=== PATIENT | female | born 1960 | race Caucasian/White ===

== ENCOUNTER 2016-04-15 12:17 | Observation (INO) | payer SELFPAY ==
[2016-04-15] MEDS ORDERED: Morphine INJ* 4 MG/ML 1 ML CARPUJECT IV ONE (13:53)
[2016-04-15] MEDS ORDERED: Ondansetron INJ* 2 MG/ML VIAL IV ONE (13:53)
[2016-04-15 14:20] LABS: Hematocrit 44 % (35-47); Hemoglobin 14.8 g/dl (12.0-16.0); Mean Corpuscular HGB Conc 33 g/dl (31-36); Mean Corpuscular Hemoglobin 31 pg (27-31); Mean Corpuscular Volume 92 fL (80-97); Mean Platelet Volume 8 um3 (7.4-10.4); Red Cell Distribution Width 13 % (10.5-15); White Blood Count 8.8 10^3/ul (3.5-10.8)
[2016-04-15 14:23] LABS: Urine Bilirubin Negative (Negative); Urine Glucose Negative (Negative); Urine Nitrite Negative (Negative)
[2016-04-15 14:30] LABS: ALT 22 U/L (7-52); AST 20 U/L (13-39); Alkaline Phosphatase 101 U/L (34-104); Anion Gap 6 mmol/L (2-11); BUN/Creatinine Ratio 15.4 (8-20); Blood Urea Nitrogen 14 mg/dL (6-24); CO2 Carbon Dioxide 27 mmol/L (22-32); Calcium 9.8 mg/dL (8.6-10.3); Chloride 100 mmol/L (101-111); EGFR African American 83.2 (>60); EGFR Non-African American 64.7 (>60); Globulin 3.3 g/dL (2-4); Glucose 111 mg/dL (70-100); Potassium 3.6 mmol/L (3.5-5.0); Sodium 133 mmol/L (133-145); Total Protein 7.3 g/dL (6.4-8.9)
[2016-04-15 14:37] LABS: Benzodiazepine Urine Screen None Detected (None Detect)
[2016-04-15 14:39] LABS: Alcohol < 10 mg/dL (<10)
[2016-04-15] MEDS ORDERED: Iohexol 300* (CONTRAST) 10 ML SDV IV ONE (14:56)
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
--- NOTE | 2016-04-15 16:32 | RAD ---
INDICATION: Right knee injury COMPARISON: None TECHNIQUE: AP, lateral and tunnel views were obtained. FINDINGS: There is osteopenia with moderate tricompartmental osteoarthritic change. There is no acute bony change. There is soft tissue edema anterior and inferior to the patella. IMPRESSION: MODERATE OSTEOARTHRITIS. SOFT TISSUE INJURY ANTERIOR AND INFERIOR TO PATELLA
--- NOTE | 2016-04-15 16:37 | RAD ---
INDICATION: LEFT hand injury COMPARISON: None TECHNIQUE: AP and lateral views were obtained. FINDINGS: The bony structures, joint spaces, and soft tissues are normal for age. IMPRESSION: NO ACUTE BONY FINDINGS.
[2016-04-15] MEDS ORDERED: oxyCODONE/Acetamin 5/325 MG* TAB PO ONE (16:45)
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
[2016-04-15] MEDS ORDERED: Morphine INJ* 2 MG/ML 1 ML CARPUJECT IV PRN (17:58)
[2016-04-15] MEDS ORDERED: Ondansetron INJ* 2 MG/ML VIAL IV PRN (17:58)
--- NOTE | 2016-04-15 18:34 | PN ---
Hospitalist Progress Note HOSPITALIST ADDENDUM Case reviewed and d/w Jamari RODRÍGUEZ. Labs and imaging reviewed. Agree with current management.
[2016-04-15] MEDS: oxyCODONE/Acetamin 5/325 MG* TAB PO PRN (18:57)
[2016-04-15] MEDS ORDERED: Zolpidem TAB* 10 MG PO SCH (21:00)
[2016-04-15] MEDS: Acetaminophen TAB* 325 MG PO PRN (21:20)
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
[2016-04-16] MEDS: oxyCODONE/Acetamin 5/325 MG* TAB PO PRN ×2 (06:54→12:07)
[2016-04-16] MEDS ORDERED: Vilazodone (NF) 40 MG TAB PO SCH (09:00)
[2016-04-16] MEDS ORDERED: Influenza VAC *QUAD* 2016-17* 0.5 ML SYRINGE IM ONE (09:00)
[2016-04-16] MEDS ORDERED: Amphetamine MIXED SALT TAB* 10 MG TAB PO SCH (09:00)
[2016-04-16] MEDS: Acetaminophen TAB* 325 MG PO PRN (09:05)
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
[2016-04-16 15:32] VITALS: BP 117/93
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
== END 2016-04-16 16:30 | disposition home or self-care (01) ==
LOC: ED 12:17 → MEDTELE 17:58
PROVIDERS: ADMIT Internal Medicine; ATTEND Hospitalist
DX: S06.0X0A Concussion without loss of consciousness, initial encounter (principal); S80.01XA Contusion of right knee, initial encounter; V47.0XXA Car driver injured in collision with fixed or stationary object in nontraffic accident, initial encounter; Y93.89 Activity, other specified; Y92.89 Other specified places as the place of occurrence of the external cause; I10 Essential (primary) hypertension; I20.9 Angina pectoris, unspecified; F32.9 Major depressive disorder, single episode, unspecified; K80.20 Calculus of gallbladder without cholecystitis without obstruction; K44.9 Diaphragmatic hernia without obstruction or gangrene; F41.9 Anxiety disorder, unspecified; I45.81 Long QT syndrome; R00.0 Tachycardia, unspecified; Z79.899 Other long term (current) drug therapy; Z87.891 Personal history of nicotine dependence; Z23 Encounter for immunization
CPT/HCPCS: 36415; 70450; 71260; 72125; 74177; 80053; 80307; 80320; 81003; 83605; 85025; 86850; 86900; 86901; 90471; 90686; 93005; 96374; 96375; 96376; 99284; A9270-GY; G0008; G0378; G0480; G8978-GP-CJ; G8979-GP-CI; G8980-GP-CJ; J2270; J2405; Q9967

== ENCOUNTER 2016-05-06 11:59 | Inpatient (IN) | payer MEDICARE ==
[2016-05-06 13:19] LABS: Hematocrit 40 % (35-47); Hemoglobin 13.3 g/dl (12.0-16.0); Mean Corpuscular HGB Conc 34 g/dl (31-36); Mean Corpuscular Hemoglobin 31 pg (27-31); Mean Corpuscular Volume 92 fL (80-97); Mean Platelet Volume 8 um3 (7.4-10.4); Red Cell Distribution Width 13 % (10.5-15); White Blood Count 8.2 10^3/ul (3.5-10.8)
[2016-05-06 13:33] LABS: Urine Bacteria 1+ (Absent); Urine Bilirubin Negative (Negative); Urine Glucose Negative (Negative); Urine Nitrite Negative (Negative)
[2016-05-06 13:34] LABS: ALT 24 U/L (7-52); AST 20 U/L (13-39); Alkaline Phosphatase 100 U/L (34-104); Anion Gap 7 mmol/L (2-11); Blood Urea Nitrogen 12 mg/dL (6-24); CO2 Carbon Dioxide 24 mmol/L (22-32); Calcium 9.8 mg/dL (8.6-10.3); Chloride 103 mmol/L (101-111); EGFR Non-African American 80.8 (>60); Glucose 111 mg/dL (70-100); Potassium 3.7 mmol/L (3.5-5.0); Sodium 134 mmol/L (133-145)
[2016-05-06 13:36] LABS: Benzodiazepine Urine Screen None Detected (None Detect)
[2016-05-06 13:55] LABS: Acetaminophen < 15 mcg/mL; Alcohol < 10 mg/dL (<10); Salicylate < 2.50 mg/dL (<30)
[2016-05-06 14:05] LABS: TSH (Thyroid Stimulating Horm) 1.19 mcIU/mL (0.34-5.60)
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
--- NOTE | 2016-05-06 15:07 | RAD ---
HISTORY: Trauma, fall COMPARISONS: April 15, 2016 TECHNIQUE: Multiple contiguous axial CT scans were obtained of the cervical spine without intravenous contrast, with coronal and sagittal multiplanar reformations. FINDINGS: BRAIN: The visualized brain is unremarkable CENTRAL CANAL: Evaluation of the central canal is limited on CT technique; however, there is no obvious canalicular mass or epidural hemorrhage. ALIGNMENT: There is straightening of the cervical lordosis. VERTEBRAL BODIES: The odontoid process is intact. The atlantoaxial intervals are symmetric. The vertebral bodies are normal in attenuation, without fracture. There is multilevel anterolateral marginal osteophyte formation. JOINTS: There is osteoarthritis of the uncovertebral and facet joints. There is osteoarthritis of the atlantoaxial articulation. MUSCULATURE: Unremarkable INTERVERTEBRAL DISCS: There is diffuse loss of intervertebral disc height. AXIAL IMAGES: C2-C3: There is bilateral uncovertebral and facet hypertrophy. There is mild left neural foraminal narrowing. There is no osseous central canal stenosis. C3-C4: There is fusion across the right facet joint. There is bilateral uncovertebral and facet hypertrophy. There is severe right neural foraminal narrowing. There is no osseous central canal stenosis. C4-C5: There is bilateral uncovertebral facet hypertrophy. There is mild right neural foraminal narrowing. There is no osseous central canal stenosis. C5-C6: There is bilateral uncovertebral and facet hypertrophy. There is severe right and moderate left neural foraminal narrowing. There is mild narrowing of central canal. C6-C7: There is bilateral uncovertebral and facet hypertrophy. There is moderate to severe bilateral neural foraminal narrowing. There is mild narrowing of the central canal. C7-T1: There is no osseous neural foraminal narrowing or central canal stenosis. SOFT TISSUES: The visualized soft tissues of the neck are unremarkable. The prevertebral fat stripe is preserved. OTHER: None. IMPRESSION: 1. STRAIGHTENING OF CERVICAL LORDOSIS. 2. DEGENERATIVE DISC DISEASE AND OSTEOARTHRITIS, DESCRIBED ABOVE. 3. THERE IS NO ACUTE OSSEOUS INJURY TO THE CERVICAL SPINE.
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
--- NOTE | 2016-05-06 15:44 | ED ---
Pierre Dumont Adam, scribed for Bear Slaughter MD on 05/06/16 at 1230 . Psychiatric Complaint - HPI Summary HPI Summary: Pt is a 55 year old female presenting with self-reported SI. She states that she came in because was afraid that she was going to hurt herself. Pt has a PMHx of anxiety, depression, panic disorder, PTSD, and suicide attempt. She states that she has been in the hospital for psychiatric issues before. She took her usual 1 Adderall and 1 Viibryd this morning. - History Of Current Complaint Chief Complaint: EDMentalHealth Time Seen by Provider: 05/06/16 12:21 Hx Obtained From: Patient Onset/Duration: Gradual Onset, Lasting Hours, Still Present Timing: Constant Severity Initially: Moderate Severity Currently: Moderate Character: Depressed Aggravating Factor(s): Nothing Alleviating Factor(s): Nothing Related History: Positive For: Prior Psychiatric Issues Has Suicidal: Reports: Thoughts - Allergies/Home Medications Allergies/Adverse Reactions: Allergies Allergy/AdvReac Type Severity Reaction Status Date / Time No Known Allergies Allergy Verified 11/06/13 17:10 PMH/Surg Hx/FS Hx/Imm Hx Endocrine/Hematology History: Denies: Hx Anticoagulant Therapy, Hx Blood Disorders, Hx Diabetes Cardiovascular History: Reports: Hx Angina, Hx Hypertension Denies: Hx Congestive Heart Failure, Hx Coronary Artery Disease, Hx Hypercholesterolemia, Hx Myocardial Infarction, Hx Valvular Heart Disease Respiratory History: Denies: Hx Asthma, Hx Chronic Obstructive Pulmonary Disease (COPD) GI History: Reports: Hx Hiatal Hernia - repair 05/2012 History: Denies: Hx Renal Disease Sensory History: Reports: Hx Contacts or Glasses - for reading, Hx Hearing Problem Opthamlomology History: Reports: Hx Contacts or Glasses - for reading Psychiatric History: Reports: Hx Anxiety, Hx Depression, Hx Panic Disorder, Hx Post Traumatic Stress Disorder, Hx Suicide Attempt Denies: Hx Eating Disorder, Hx of Violent Episodes Against Others - Surgical History Surgery Procedure, Year, and Place: hiatal hernia repair 05/2012. ESOPHAGUS "WRAPPED?" Hx Anesthesia Reactions: No - Immunization History Date of Tetanus Vaccine: up to date Date of Influenza Vaccine: unknown Infectious Disease History: No Infectious Disease History: Denies: Traveled Outside the [place] in Last 30 Days - Family History Known Family History: Positive: Other - Depression, alcohol abuse - Social History Occupation: Disabled Lives: Alone Alcohol Use: Occasionally Hx Substance Use: Yes Substance Use Type: Reports: Prescribed Hx Tobacco Use: No Smoking Status (MU): Never Smoked Tobacco Review of Systems Negative: Fever Positive: Depressed All Other Systems Reviewed And Are Negative: Yes Physical Exam Triage Information Reviewed: Yes Vital Signs On Initial Exam: Initial Vitals Temp Pulse Resp BP Pulse Ox 98.8 F 123 24 181/119 97 05/06/16 12:09 05/06/16 12:09 05/06/16 12:09 05/06/16 12:09 05/06/16 12:09 Vital Signs Reviewed: Yes Appearance: Positive: Well-Appearing, No Pain Distress Skin: Positive: Warm, Skin Color Reflects Adequate Perfusion, Dry Head/Face: Positive: Normal Head/Face Inspection Eyes: Positive: EOMI, BECKA ENT: Positive: Normal ENT inspection Neck: Positive: Supple, Nontender Respiratory/Lung Sounds: Positive: Clear to Auscultation, Breath Sounds Present Cardiovascular: Positive: RRR Abdomen Description: Positive: Nontender, Soft Bowel Sounds: Positive: Present Musculoskeletal: Positive: Normal, Strength/ROM Intact Neurological: Positive: Normal, Sensory/Motor Intact, Alert, Oriented to Person Place, Time Psychiatric: Positive: Affect/Mood Appropriate Diagnostics - Vital Signs Vital Signs Temp Pulse Resp BP Pulse Ox 05/06/16 12:09 98.8 F 123 24 181/119 97 - Laboratory Lab Results: Lab Results 05/06/16 05/06/16 05/06/16 Range/Units 12:50 12:50 13:02 WBC 8.2 (3.5-10.8) 10^3/ul RBC 4.30 (4.0-5.4) 10^6/ul Hgb 13.3 (12.0-16.0) g/dl Hct 40 (35-47) % MCV 92 (80-97) fL MCH 31 (27-31) pg MCHC 34 (31-36) g/dl RDW 13 (10.5-15) % Plt Count 308 (150-450) 10^3/ul MPV 8 (7.4-10.4) um3 Neut % (Auto) 66.1 (38-83) % Lymph % (Auto) 23.2 L (25-47) % Winn % (Auto) 7.6 (1-9) % Eos % (Auto) 2.4 (0-6) % Baso % (Auto) 0.7 (0-2) % Absolute Neuts (auto) 5.4 (1.5-7.7) 10^3/ul Absolute Lymphs (auto) 1.9 (1.0-4.8) 10^3/ul Absolute Monos (auto) 0.6 (0-0.8) 10^3/ul Absolute Eos (auto) 0.2 (0-0.6) 10^3/ul Absolute Basos (auto) 0.1 (0-0.2) 10^3/ul Absolute Nucleated RBC 0 10^3/ul Nucleated RBC % 0 Sodium (133-145) mmol/L Potassium (3.5-5.0) mmol/L Chloride (101-111) mmol/L Carbon Dioxide (22-32) mmol/L Anion Gap (2-11) mmol/L BUN (6-24) mg/dL Creatinine (0.51-0.95) mg/dL Est GFR ( Amer) (>60) Est GFR (Non-Af Amer) (>60) BUN/Creatinine Ratio (8-20) Glucose (70-100) mg/dL Calcium (8.6-10.3) mg/dL Total Bilirubin (0.2-1.0) mg/dL AST (13-39) U/L ALT (7-52) U/L Alkaline Phosphatase (34-104) U/L Total Protein (6.4-8.9) g/dL Albumin (3.2-5.2) g/dL Globulin (2-4) g/dL Albumin/Globulin Ratio (1-3) TSH (0.34-5.60) mcIU/mL Urine Color Straw Urine Appearance Clear Urine pH 5.0 (5-9) Ur Specific [place] 1.003 L (1.010-1.030) Urine Protein Negative (Negative) Urine Ketones Negative (Negative) Urine Blood 1+ H (Negative) Urine Nitrate Negative (Negative) Urine Bilirubin Negative (Negative) Urine Urobilinogen Negative (Negative) Ur Leukocyte Esterase Negative (Negative) Urine WBC (Auto) Trace(0-5/hpf) (Absent) Urine RBC (Auto) Trace(0-2/hpf) (Absent) Ur Squamous Epith Cells Present H (Absent) Urine Bacteria 1+ H (Absent) Urine Glucose Negative (Negative) Salicylates (<30) mg/dL Urine Opiates Screen None detected (None Detect) Acetaminophen mcg/mL Ur Barbiturates Screen None detected (None Detect) Ur Phencyclidine Scrn None detected (None Detect) Ur Amphetamines Screen Presumptive positive H (None Detect) U Benzodiazepines Scrn None detected (None Detect) Urine Cocaine Screen None detected (None Detect) U Cannabinoids Screen None detected (None Detect) Serum Alcohol (<10) mg/dL 05/06/16 Range/Units 13:02 WBC (3.5-10.8) 10^3/ul RBC (4.0-5.4) 10^6/ul Hgb (12.0-16.0) g/dl Hct (35-47) % MCV (80-97) fL MCH (27-31) pg MCHC (31-36) g/dl RDW (10.5-15) % Plt Count (150-450) 10^3/ul MPV (7.4-10.4) um3 Neut % (Auto) (38-83) % Lymph % (Auto) (25-47) % Winn % (Auto) (1-9) % Eos % (Auto) (0-6) % Baso % (Auto) (0-2) % Absolute Neuts (auto) (1.5-7.7) 10^3/ul Absolute Lymphs (auto) (1.0-4.8) 10^3/ul Absolute Monos (auto) (0-0.8) 10^3/ul Absolute Eos (auto) (0-0.6) 10^3/ul Absolute Basos (auto) (0-0.2) 10^3/ul Absolute Nucleated RBC 10^3/ul Nucleated RBC % Sodium 134 (133-145) mmol/L Potassium 3.7 (3.5-5.0) mmol/L Chloride 103 (101-111) mmol/L Carbon Dioxide 24 (22-32) mmol/L Anion Gap 7 (2-11) mmol/L BUN 12 (6-24) mg/dL Creatinine 0.75 (0.51-0.95) mg/dL Est GFR ( Amer) 104.0 (>60) Est GFR (Non-Af Amer) 80.8 (>60) BUN/Creatinine Ratio 16.0 (8-20) Glucose 111 H (70-100) mg/dL Calcium 9.8 (8.6-10.3) mg/dL Total Bilirubin 0.40 (0.2-1.0) mg/dL AST 20 (13-39) U/L ALT 24 (7-52) U/L Alkaline Phosphatase 100 (34-104) U/L Total Protein 7.0 (6.4-8.9) g/dL Albumin 4.0 (3.2-5.2) g/dL Globulin 3.0 (2-4) g/dL Albumin/Globulin Ratio 1.3 (1-3) TSH 1.19 (0.34-5.60) mcIU/mL Urine Color Urine Appearance Urine pH (5-9) Ur Specific [place] (1.010-1.030) Urine Protein (Negative) Urine Ketones (Negative) Urine Blood (Negative) Urine Nitrate (Negative) Urine Bilirubin (Negative) Urine Urobilinogen (Negative) Ur Leukocyte Esterase (Negative) Urine WBC (Auto) (Absent) Urine RBC (Auto) (Absent) Ur Squamous Epith Cells (Absent) Urine Bacteria (Absent) Urine Glucose (Negative) Salicylates < 2.50 (<30) mg/dL Urine Opiates Screen (None Detect) Acetaminophen < 15 mcg/mL Ur Barbiturates Screen (None Detect) Ur Phencyclidine Scrn (None Detect) Ur Amphetamines Screen (None Detect) U Benzodiazepines Scrn (None Detect) Urine Cocaine Screen (None Detect) U Cannabinoids Screen (None Detect) Serum Alcohol < 10 (<10) mg/dL Result Diagrams: 05/06/16 13:02 05/06/16 13:02 Lab Statement: Any lab studies that have been ordered have been reviewed, and results considered in the medical decision making process. - CT MAXILLOFACIAL CT Interpretation Completed By: Radiologist - IMPRESSION: THERE IS A SMALL SOFT TISSUE DENSITY MASS ANTERIOR TO THE LEFT MAXILLARY SINUS SUGGESTIVE OF A HEMATOMA, RECOMMEND CLINICAL CORRELATION. NO FRACTURE IS SEEN. CERVICAL SPINE CT Interpretation Completed By: Radiologist - IMPRESSION: 1. STRAIGHTENING OF CERVICAL LORDOSIS. 2. DEGENERATIVE DISC DISEASE AND OSTEOARTHRITIS, DESCRIBED ABOVE. 3. THERE IS NO ACUTE OSSEOUS INJURY TO THE CERVICAL SPINE. BRAIN CT Interpretation Completed By: Radiologist - IMPRESSION: NO ACUTE INTRACRANIAL PATHOLOGY. Course/Dx - Course Assessment/Plan: admit stable mhu - Differential Dx/Clinical Impression Provider Diagnosis: Mental health problem, Head trauma Discharge - Discharge Plan Condition: Stable Disposition: ADMITTED TO [facility] Referrals: Christie Keys MD [Primary Care Provider] - The documentation as recorded by the Pierre masters Adam accurately reflects the service I personally performed and the decisions made by me, Bear Slaughter MD.
[2016-05-06] MEDS ORDERED: Al Hydrox/Mg Hydrox/Simet LIQ* 30 ML UDC PO PRN (16:09)
[2016-05-06] MEDS ORDERED: Nicotine GUM* 2 MG PO PRN (16:09)
[2016-05-06] MEDS ORDERED: Gabapentin CAP(*) 100 MG PO PRN (16:10)
[2016-05-06] MEDS: Acetaminophen TAB* 325 MG PO PRN (17:36)
[2016-05-06] MEDS: Gabapentin CAP(*) 300 MG PO SCH (21:43)
[2016-05-06] MEDS: Zolpidem TAB* 10 MG PO SCH (21:44)
[2016-05-07] MEDS: Acetaminophen TAB* 325 MG PO PRN ×4 (04:05→18:27)
[2016-05-07] MEDS ORDERED: Vilazodone (NF) 40 MG TAB PO SCH (09:00)
[2016-05-07] MEDS: Vitamin THERAPEUTIC TAB PO SCH (09:41)
[2016-05-07] MEDS: Amphetamine MIXED SALT TAB* 10 MG TAB PO SCH (09:41)
--- NOTE | 2016-05-07 12:00 | PN ---
[facility]: Group Therapy Note - Service Type Service Type: [id number] Group Psychotherapy - Cognitive Behavioral Group Therapy ( CBT):Patient attended CBT programming this morning and presented with flat affect that did not vary with discussion. Although responsive to direct prompts to respond to questions, patient did not engage in spontaneous conversation.
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
[2016-05-07] MEDS: Gabapentin CAP(*) 300 MG PO SCH (20:24)
[2016-05-07] MEDS: Zolpidem TAB* 10 MG PO SCH (20:24)
[2016-05-08] MEDS: Acetaminophen TAB* 325 MG PO PRN ×3 (03:36→16:08)
[2016-05-08] MEDS: Vitamin THERAPEUTIC TAB PO SCH (09:02)
[2016-05-08] MEDS: CMC:Vilazodone (NF) 40 MG TAB PO SCH (09:02)
[2016-05-08] MEDS: Amphetamine MIXED SALT TAB* 10 MG TAB PO SCH (09:02)
[2016-05-08] MEDS ORDERED: traZODone TAB* 100 MG PO PRN (14:10)
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
[2016-05-08] MEDS: Gabapentin CAP(*) 300 MG PO SCH (20:17)
[2016-05-08] MEDS: Zolpidem TAB* 10 MG PO SCH (20:18)
[2016-05-09] MEDS: Acetaminophen TAB* 325 MG PO PRN (04:17)
[2016-05-09] MEDS: Vitamin THERAPEUTIC TAB PO SCH (09:49)
[2016-05-09] MEDS: CMC:Vilazodone (NF) 40 MG TAB PO SCH (09:50)
[2016-05-09] MEDS: Amphetamine MIXED SALT TAB* 10 MG TAB PO SCH (09:50)
[2016-05-09 11:16] VITALS: BP 148/102
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
== END 2016-05-09 13:00 | disposition home or self-care (01) | DRG 885 ==
LOC: ED 11:59 → BSU 16:58
PROVIDERS: ADMIT Psychiatry & Neurology Psychiatry; ATTEND Psychiatry & Neurology Psychiatry
DX: F33.2 Major depressive disorder, recurrent severe without psychotic features (principal); R45.851 Suicidal ideations; E66.9 Obesity, unspecified; Z68.32 Body mass index [BMI] 32.0-32.9, adult; Z87.820 Personal history of traumatic brain injury; Z79.899 Other long term (current) drug therapy
CPT/HCPCS: 36415; 70450; 70486; 72125; 80053; 80307; 80320; 80329; 81003; 81015; 84443; 85025; 87086; 99222; 99232; 99238; A9270-GY; G0480